=== PATIENT | male | born 1975 | race Asian ===

== ENCOUNTER 2021-07-18 06:33 | Emergency (ER) | payer SELFPAY ==
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
[2021-07-18 08:13] LABS: Bacteria,Urine 1+ /HPF (Negative); Bilirubin,Urine NEG (Negative); Blood,Urine SM (Negative); Color,Urine Yellow (Yellow); Mucus,Urine 1+ /HPF; Urobilinogen,Urine < 2.0 mg/dL (<2.0)
[2021-07-18 08:30] LABS: Basophils # (Auto) 0.1 K/mm3 (0.0-0.1); Basophils % (Auto) 0.4 % (0.0-1.8); Eosinophils % (Auto) 0.3 % (0.0-4.3); Hematocrit 43.9 % (35.5-45.6); Hemoglobin 13.7 gm/dl (11.8-15.2); Lymphocytes # (Auto) 2.6 K/mm3 (1.2-5.4); Lymphocytes % (Auto) 22.1 % (13.4-35.0); Mean Corpuscular HGB Conc 31 % (32-34); Mean Corpuscular Volume 70 fl (84-94); Monocytes # (Auto) 0.8 K/mm3 (0.0-0.8); Monocytes % (Auto) 7.1 % (0.0-7.3); Platelet Count 444 K/mm3 (140-440); Red Blood Count 6.26 M/mm3 (3.65-5.03); Red Cell Distribution Width 15.6 % (13.2-15.2)
[2021-07-18 08:37] LABS: Benzodiazepines Screen,Urine Negative; Cannabinoid Screen,Urine Negative; Cocaine Screen,Urine Negative; Methadone Screen,Urine Negative; Opiate Screen,Urine Negative
[2021-07-18 08:49] LABS: BUN/Creatinine Ratio 7; Blood Urea Nitrogen 7 mg/dL (9-20); Calcium 9.9 mg/dL (8.4-10.2); Hemolysis Index 3
[2021-07-18 08:56] LABS: Amphetamine Screen,Urine Positive
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
[2021-07-18] MEDS ORDERED: ACETAMINOPHEN 500 MG TAB PO ONE (17:59)
[2021-07-18] MEDS ORDERED: DOXEPIN 10 MG CAP PO SCH (22:00)
--- NOTE | 2021-07-19 09:33 | Progress Note ---
Subjective - Reason for Consult Consult date: 07/19/21 Reason for consult: hallucinating - Chief Complaint Chief complaint: The patient was seen today. He is calm and cooperative. He says he slept well. The patient is asking why he's still in the hospital. He says "my hold has been up. Look, I'm not trying to hurt anyone." The patient denies SI/HI or hallucinations of any kind. He say "I told you yesterday, I didn't have any of that. It's not right for you to keep me here." Discussed with the patient about being positive for amphetamines. He first paused then says "I think it was the psudafed." REVIEW OF SYSTEMS Constitutional: Negative for weight loss ENT: Negative for stridor Respiratory: Negative for cough or hemoptysis All other systems reviewed and are negative MENTAL STATUS EXAMINATION General Appearance and Behavior: Age appropriate, good hygiene, wearing appropriate clothes, good eye contact, calm, cooperative Cooperation: Participating/engaged, but Guarded Psychomotor Behavior: Psychomotor normal Mood: calm Affect and affective range: congruent with stated mood Thought Process: goal directed Thought Content: None Speech: Normal tone and pace Suicidal Ideation: Denies Homicidal Ideation: Denies Hallucinations: Denies Delusions: None elicited Impulse Control: Normal Insight and Judgment: Limited insight and judgment Memory: Limited Attention: attentive Orientation: Alert, oriented Assessment and Plan Delusional Disorder Methamphetamine Use Disorder Treatment Plan d/c 1013 Olanzapine 5mg po daily Doxepin 10mg po qhs Sitter: per primary Medical: defer to primary Disposition: Do not recommend acute psychiatric inpatient treatment. The patient understands that if SI/HI arise or any fear of endangerment he is to seek immediate assistance The claims account specialist to provide the patient with all necessary outpatient resources including drug rehab The patient to abstain from all illicit drug use The patient to follow up with outpatient psych in 7 to 14 days upon discharge Will sign off. Thanks Case staffed with Dr. Mann Mental Status Exam - Vital signs Last Vital Signs Temp 97.8 F 07/19/21 01:58 Pulse 107 H 07/19/21 01:58 Resp 18 07/19/21 01:58 BP 106/70 07/19/21 01:58 Pulse Ox 99 07/19/21 01:58
--- NOTE | 2021-07-19 14:56 | Event Note ---
Date: 07/19/21 The patient has been stabilized psychiatrically and a discharge recommendation has been offered by them. Medically he is stable with no overnight issues. We will be discharging him.
[2021-07-19 16:39] VITALS: BP 128/86
== END 2021-07-19 16:37 | disposition home or self-care (01) ==
LOC: ED 06:33
DX: F22 Delusional disorders (principal); F15.20 Other stimulant dependence, uncomplicated; Z98.890 Other specified postprocedural states; F17.200 Nicotine dependence, unspecified, uncomplicated; Z20.822 Contact with and (suspected) exposure to COVID-19; Z79.899 Other long term (current) drug therapy
CPT/HCPCS: 36415; 80048; 80307; 81001; 85025; 87086; 99284; U0003; 80320; G0480